=== PATIENT | female | born 1980 | race Two or more races ===

== ENCOUNTER 2018-12-17 10:01 | Outpatient (CLI) | payer OTHER ==
[~2018-12-17 10:01] MED LIST: OMEPRAZOLE20 MG PO; PEPCID AC20 MG PO; REGLAN5 MG/5 ML PO
== END 2018-12-17 10:14 | disposition home or self-care (01) ==
LOC: MAMO-SONO 10:01
DX: N64.59 Other signs and symptoms in breast (principal); N63.10 Unspecified lump in the right breast, unspecified quadrant; N63.20 Unspecified lump in the left breast, unspecified quadrant; R10.2 Pelvic and perineal pain; Z12.31 Encounter for screening mammogram for malignant neoplasm of breast

== ENCOUNTER 2019-07-29 09:23 | Emergency (ER) | payer OTHER ==
[~2019-07-29] VITALS: Ht 172.7 cm; Wt 72.1 kg
== END 2019-07-29 11:07 | disposition home or self-care (01) ==
LOC: ER 09:23
DX: G43.909 Migraine, unspecified, not intractable, without status migrainosus (principal)

== ENCOUNTER 2022-02-28 10:40 | Emergency (ER) | payer OTHER ==
[~2022-02-28] VITALS: Ht 170.2 cm; Wt 71.7 kg
[2022-02-28] MEDS ORDERED: MOTION SICKNESS25 M1 PO (15:54)
== END 2022-02-28 16:10 | disposition home or self-care (01) ==
LOC: ER 10:40
DX: R42 Dizziness and giddiness (principal); R53.81 Other malaise; K80.80 Other cholelithiasis without obstruction; Z88.6 Allergy status to analgesic agent

== ENCOUNTER 2022-03-28 05:00 | Day surgery (SDC) | payer OTHER ==
[~2022-03-28] VITALS: Ht 172.7 cm; Wt 72.6 kg
[~2022-03-28 05:00] MED LIST changes: +MOTION SICKNESS25 M1 PO
== END 2022-03-28 11:30 | disposition home or self-care (01) ==
LOC: CIR.AMB 05:00
PROVIDERS: ATTEND Specialist
DX: K80.10 Calculus of gallbladder with chronic cholecystitis without obstruction (principal); Z20.822 Contact with and (suspected) exposure to COVID-19; Z88.6 Allergy status to analgesic agent; F17.210 Nicotine dependence, cigarettes, uncomplicated

== ENCOUNTER 2024-07-28 19:33 | Emergency (ER) | payer OTHER ==
[~2024-07-28] VITALS: Ht 170.2 cm; Wt 81.6 kg
[2024-07-28] MEDS ORDERED: DEXAMETHASONE SODIUM PHOSPHATE 4 MG/ML VIAL IM STA (22:40)
[2024-07-28] MEDS ORDERED: ORPHENADRINE CITRATE 30 MG/ML AMPUL IM STA (22:41)
== END 2024-07-29 00:12 | disposition home or self-care (01) ==
LOC: ER 19:34
DX: R53.81 Other malaise (principal); M94.0 Chondrocostal junction syndrome [Tietze]; Z88.6 Allergy status to analgesic agent